=== PATIENT | female | born 1950 ===

== ENCOUNTER 2019-01-21 08:52 | Outpatient (CLI) | payer OTHER ==
[~2019-01-21] VITALS: Ht 167.6 cm; Wt 68.0 kg
[2019-01-21] MEDS ORDERED: DERMOTIC20 ML OTIC (10:36)
[2019-01-21] MEDS ORDERED: CLARITIN10 MG PO (10:36)
== END 2019-01-21 15:25 | disposition home or self-care (01) ==
LOC: OFIC 805 08:52
DX: J31.0 Chronic rhinitis (principal); H90.3 Sensorineural hearing loss, bilateral; L29.9 Pruritus, unspecified; H61.22 Impacted cerumen, left ear